=== PATIENT | female | born 2000 | race Caucasian/White ===

== ENCOUNTER 2024-02-16 14:07 | Emergency (ER) | payer BC, SELFPAY ==
[2024-02-16 14:14] VITALS: BP 149/75
[2024-02-16 14:39] LABS: % Basophils 0.4 % (0-2); % Eosinophils 0.3 % (0-6); % Immature Granulocytes 0.3 % (0-0.5); % Lymphocytes 13.2 % (20.5-51.1); % Monocytes 5.1 % (1.7-9.3); % Neutrophils 80.7 % (42.2-75.2); Absolute Monocytes 0.4 10^3/uL (0.1-0.6); Absolute Neutrophils 6.2 10^3/uL (1.4-6.5); Hematocrit 42.9 % (37.0-47.0); Hemoglobin 14.8 g/dL (12.0-16.0); Mean Corp Hgb Conc. 34.5 g/dL (33.0-37.0); Mean Corpuscular Hgb 29.6 pg (27.0-31.0); Mean Corpuscular Volume 85.8 fL (81.0-99.0); Mean Platelet Volume 10.3 fL (7.4-10.4); Nucleated Red Blood Cells % 0 %; Platelet Count 236 10^3/uL (130-400); Red Cell Dist. Width 12.3 % (11.5-14.5); White Blood Cell Count 7.7 10^3/uL (4.8-10.8)
[2024-02-16 14:49] LABS: HCG, Serum Qualitative Screen Negative
[2024-02-16 14:53] LABS: ALT (SGPT) 20 U/L (0-35); AST (SGOT) 23 U/L (14-36); Albumin 5.1 g/dl (3.5-5.0); Alkaline Phosphatase 110 U/L (38-126); Blood Urea Nitrogen 8 mg/dl (7-17); Calcium 10.1 mg/dl (8.4-10.2); Carbon Dioxide 21 mmol/L (22-30); Chloride 103 mmol/L (98-107); Glucose 129 mg/dl (70-99); Potassium 3.7 mmol/L (3.5-5.1); Sodium 137 mmol/L (135-145); Total Bilirubin 0.6 mg/dl (0.2-1.3); eGFR > 60.00
--- NOTE | 2024-02-16 15:06 | ED.GENMED ---
History of Present Illness
General
Chief Complaint: Abdominal Symptoms
Source: patient
Exam Limitations: none
Time Seen by Provider: 02/16/24 14:50
History of Present Illness
History of Present Illness:
23-year-old female with 3 days of nausea vomiting vague upper abdominal discomfort. Today she states she vomited a small amount of bright red blood. No chest pain shortness of breath back pain fever. Patient increased her [place] weeks ago. No
one else is ill at home. No other unusual food ingestion.
Past History
Past History
ED Past Medical History: Psychiatric and Other (PCOS)
ED Past Surgical History: Tonsilectomy and Other (Bone graft and implant for teeth)
Review of Systems
Review of Systems
All Other Systems: Not applicable
Respiratory: Reports no symptoms
: Reports no symptoms
Phy Exam
Physical Exam
Physical Exam:
GENERAL: Alert and oriented in no apparent distress
EYE: Orbits normal.
NECK: Supple, no significant adenopathy.
ENT: Pharynx without erythema
CARDIAC: Regular rate and rhythm without any obvious murmurs.
LUNGS: Clear breath sounds,normal
ABDOMEN: Soft, minimal epigastric tenderness. No rebound or guarding no mass or hernia
NEUROLOGICAL: Alert and oriented , grossly non-focal
SKIN: Warm and dry, no rash or lesion, no discoloration, skin intact.
MUSCULOSKELETAL: No edema,no deformity.Good color
PSYCH: Normal and appropriate interaction.
Course
Orders/Labs/Results
Orders:
Orders
02/16/24 14:21
Test Result ONCE
02/16/24 14:24
CMP [Comprehensive Metabolic Panel] Urgent
Complete Blood Count/With Diff Urgent
HCG, Serum Qualitative Screen Urgent
Lipase Urgent
Comment: ADD ON
02/16/24 14:51
Add On- LAB Urgent
Tests Added?: lipase
02/16/24 15:05
CT Abd/Pel (IV only)-[facility] only Urgent
Comment:
Reason For Exam: Abdominal pain/vomiting
IV Insert/Care/Rem.- Treatment PRN
0.9% Sodium Chloride 1000 ml [Nss] 1,000 ml IV BOLUS
Ondansetron Injectable [Zofran] 4 mg IV NOW STA
Pantoprazole [Protonix IV] 40 mg IV NOW STA
02/16/24 17:02
EKG [Electrocardiogram (*1)] Urgent
Reason for Study: QTc Monitoring
EKG- Treatment ONCE
02/16/24 17:45
0.9% Sodium Chloride 500 ml [Nss] 500 ml IV BOLUS
Diphenhydramine [Benadryl] 25 mg IV NOW STA
Prochlorperazine [Compazine] 5 mg IV NOW STA
Abnormal Lab Results
02/16/24
14:24
Absolute Lymphs (auto) 1.0 L 10^3/uL
(1.2-3.4)
Neutrophils % 80.7 H %
(42.2-75.2)
Lymphocytes % 13.2 L %
(20.5-51.1)
Carbon Dioxide 21 L mmol/L
(22-30)
Glucose 129 H mg/dl
(70-99)
Albumin 5.1 H g/dl
(3.5-5.0)
02/16/24 14:24
02/16/24 14:24
Vital Signs
Initial and Last Documented VS:
Initial Vital Signs
Temp Pulse Resp BP Pulse Ox
97.8 F 72 16 149/75 99
02/16/24 14:14 02/16/24 14:14 02/16/24 14:14 02/16/24 14:14 02/16/24 14:14
Last Documented Vital Signs
Temp Pulse Resp BP Pulse Ox
97.8 F 72 16 149/75 99
02/16/24 14:14 02/16/24 14:14 02/16/24 14:14 02/16/24 14:14 02/16/24 14:14
MDM/Problems Addressed
Differential Diagnosis Includes:
Patient symptoms likely either viral or related to her Wegovy. However with the abdominal discomfort and Wegovy we will get a CT to evaluate her pancreas. Lipase is pending. As for this hematemesis, I looked at her emesis and there was no obvious
clots of blood. She is in 0 distress. Highly doubt significant Chanelle-Maldonado tear. Comfort measures of saline Protonix and Zofran
*Radiology
Radiology exam reviewed: radiology read reviewed (Mild colitis. Possible Daksha's morphology)
*Pulse Oximetry
Patient hypoxic: no
*EKG
Interpreted by ED Provider?: Yes
Interpretation: normal
Heart Rate: 64
Rate: normal
Rhythm: sinus
Vancleve: normal axis
Interval: normal interval
QRS Pattern: normal QRS
Ischemia: no ischemia
*Critical Care Note
Total Time (30-74mins, 75-104mins- exclusive of procedures): Not Applicable
Update Note
Update Note:
1700... Patient still feels nauseous. Workup unremarkable. Mildly enlarged liver but LFTs normal no right upper quadrant tenderness. Will get an EKG to check QT interval if okay give Compazine and Benadryl.
1935... Patient looks great and feels much better. Stable for discharge. Enteritis versus Wegovy
ED Attending Note
-
Portions of this chart may have been created with voice recognition software.� Occasional wrong word or��sound alike� substitutions may have occurred due to the inherent limitations of voice recognition software.
Discharge Plan
Departure
Patient Disposition: Home (Routine Discharge)
Date of Disposition: 02/16/24
Time of Disposition: 19:45
Patient with high blood pressure during this ER visit?: Yes
Discharge Problem:
Enteritis/colitis, Viral versus medication related, Probable Daksha's hepatomegaly
Instructions: Nausea and Vomiting, Adult (DC), Abdominal Pain, BLOOD PRESSURE
Referrals:
UNKNOWN - PT DOES,NOT KNOW [Family Provider] -
Activity Restrictions/Additional Instructions:
Follow-up closely with your primary physician.
Also discussed continuation of your medication
Get rechecked if symptoms progress or if not improving or resolved in 2 to 3 days
To consider follow-up ultrasounds of your liver. This can be followed with your primary care physician
Discharge Date and Time
Print Language: MICRONESIAN
[2024-02-16] MEDS: NSS 1000 IV (15:25)
[2024-02-16] MEDS: PROTONIX IV 40 MG IV (15:26)
[2024-02-16] MEDS: ZOFRAN 4 MG IV (15:26)
[2024-02-16 15:29] LABS: Lipase 47 U/L (23-300)
[2024-02-16] MEDS: BENADRYL 25 MG IV (18:19)
[2024-02-16] MEDS: NSS 500 IV (18:19)
[2024-02-16] MEDS: COMPAZINE 5 MG IV (18:20)
[2024-02-16 19:53] VITALS: BP 120/68
== END 2024-02-16 19:59 | disposition home or self-care (01) ==
LOC: EMR 14:07
PROVIDERS: Emergency Medicine; EMERGENCY PHYSICIAN Emergency Medicine
DX: A08.4 Viral intestinal infection, unspecified (principal); E28.2 Polycystic ovarian syndrome
CPT/HCPCS: 99284; 96374; 96375; 96361; 74177; 80053; 83690; 84703; 85025; 93005; Q9967

== ENCOUNTER 2024-02-19 12:39 | Emergency (ER) | payer BC, SELFPAY ==
[2024-02-19 12:53] VITALS: BP 156/87
--- NOTE | 2024-02-19 12:59 | ED.GENMED ---
ED Provider Triage
<SARAH Corona - Last Filed: 02/19/24 13:03>
-
Patient seen by provider in Triage?: Seen in Triage
Attestation: A medical screening examination has been initiated by a qualified medical provider. Based on the assessment performed at this time, it has been determined that an emergent medical condition may exist and the patient has been informed
that further medical evaluation and possible additional diagnostic testing may be needed.
HPI: 23 yr old female presents to the ED with c/o of n/v 6 d ago. pt was seen here on Friday received fluids. Pt still vomiting and feels dehydrated. Does not have any prescribed nausea medicine at home. No fevers. Patient went to urgent
care today and blood work was obtained. She was sent to the ER for low potassium of 3.1.
GENERAL: Alert , in no apparent distress
EYE: No visual abnormalities.
NECK: Trachea midline
ENT: No visible abnormalities.
LUNGS: No acute respiratory distress
NEUROLOGICAL: Alert and oriented
SKIN: Skin intact. No visible changes.
MUSCULOSKELETAL: Moving extremities normally
PSYCH: Normal and appropriate interaction.
This is a medical evaluation conducted in person to initiate diagnostic evaluation and provide initial therapeutics. Please see further documentation by the treating clinician.
History of Present Illness
<SARAH Corona - Last Filed: 02/19/24 13:03>
General
Chief Complaint: Dehydration Symptoms
Time Seen by Provider: 02/19/24 13:24
<Kathi Smith PA-C - Last Filed: 02/19/24 17:54>
General
Source: patient and records
Exam Limitations: none
History of Present Illness
History of Present Illness:
23yoF with a history of PCOS, bipolar disorder, and anxiety presenting for evaluation of nausea and vomiting. Symptoms have been ongoing for the past several days. She was seen in the ED 3 days ago for the same. CT showed questionable mild
colitis. She was feeling well after medications and was ultimately discharged. Her symptoms have recurred and she is having difficulty tolerating p.o. intake. She is vomiting 10+ times a day. She also reports seeing a small amount of bright red
blood mixed in with her emesis. She denies any diarrhea. She reports a generalized aching/soreness in her abdomen which she attributes to the vomiting. She was seen at her PCP yesterday and was diagnosed with COVID. She went to urgent care today
and potassium was 3.1 and she was sent to the ED for evaluation. Of note, patient's Wegovy dose was increased last week. She also admits to daily marijuana use but has not used since her symptoms began.
Past History
<SARAH Corona - Last Filed: 02/19/24 13:03>
Past History
ED Past Medical History: Psychiatric and Other (PCOS)
ED Past Surgical History: Tonsilectomy and Other (Bone graft and implant for teeth)
Phy Exam
<Kathi Smith PA-C - Last Filed: 02/19/24 17:54>
General Physical Exam
General Presentation: well appearing and no apparent distress
General age: appears stated age
General Skin: warm and dry
General Habitus: normal
General Mental: alert
ENT Exam
ENT Exam: normocephalic
Cardiovascular Exam
Cardiovascular Exam: regular rate/rhythm
Pulmonary Exam
Pulmonary Exam: lungs clear, no respiratory distress, no rales, no crackles, no rhonchi and no wheezing
Gastrointestinal Exam
Gastrointestinal Exam: non tender, soft and non distended
Neurological Exam
Neurological Exam: alert
Mimbres Coma Scale
Eye Opening: Spontaneous
Verbal Response: Oriented
Motor Response: Obeys Commands
GCS Total Score: 15
Skin Exam
Skin Exam: normal color and warm/dry
Psychiatric Exam
Psychiatric Exam: normal mood/affect
<Apolinar Weathers PA-C - Last Filed: 02/19/24 23:21>
Mimbres Coma Scale
GCS Total Score: 15
Course
<SARAH Corona - Last Filed: 02/19/24 13:03>
Orders/Labs/Results
Orders:
Orders
02/19/24 13:02
Ondansetron Orally Disint [Zofran Odt (Orally Disintegrating)] 4 mg PO NOW STA
02/19/24 13:05
Ondansetron Orally Disint [Zofran Odt (Orally Disintegrating)] 4 mg .ROUTE .[facility]
02/19/24 13:40
0.9% Sodium Chloride 1000 ml [Nss] 1,000 ml IV BOLUS
Diphenhydramine [Benadryl] 25 mg IV NOW STA
Famotidine [Pepcid] 20 mg IV NOW STA
Metoclopramide [Reglan] 10 mg IV NOW STA
Pantoprazole [Protonix IV] 40 mg IV NOW STA
Test Result ONCE
02/19/24 13:59
Complete Blood Count/With Diff Urgent
Comprehensive Metabolic Panel Urgent
HCG, Serum Qualitative Screen Urgent
Lipase Urgent
02/19/24 15:28
0.9% Sodium Chloride 1000 ml [Nss] 1,000 ml IV BOLUS
Promethazine [Phenergan] 25 mg IM NOW STA
02/19/24 16:32
Prochlorperazine [Compazine] 10 mg IV NOW STA
Abnormal Lab Results
02/19/24
13:59
WBC 12.4 H 10^3/uL
(4.8-10.8)
Absolute Neuts (auto) 10.5 H 10^3/uL
(1.4-6.5)
Neutrophils % 85.2 H %
(42.2-75.2)
Lymphocytes % 10.9 L %
(20.5-51.1)
Glucose 107 H mg/dl
(70-99)
Albumin 5.2 H g/dl
(3.5-5.0)
02/19/24 13:59
02/19/24 13:59
Vital Signs
Initial and Last Documented VS:
Initial Vital Signs
Temp Pulse Resp BP Pulse Ox
98.4 F 57 18 156/87 96
02/19/24 12:53 02/19/24 12:53 02/19/24 12:53 02/19/24 12:53 02/19/24 12:53
Last Documented Vital Signs
Temp Pulse Resp BP Pulse Ox
98.4 F 62 18 136/67 99
02/19/24 12:53 02/19/24 14:09 02/19/24 14:09 02/19/24 14:09 02/19/24 14:09
<Kathi Smith PA-C - Last Filed: 02/19/24 17:54>
Orders/Labs/Results
Orders:
Orders
02/19/24 13:02
Ondansetron Orally Disint [Zofran Odt (Orally Disintegrating)] 4 mg PO NOW STA
02/19/24 13:05
Ondansetron Orally Disint [Zofran Odt (Orally Disintegrating)] 4 mg .ROUTE .[facility]
02/19/24 13:40
0.9% Sodium Chloride 1000 ml [Nss] 1,000 ml IV BOLUS
Diphenhydramine [Benadryl] 25 mg IV NOW STA
Famotidine [Pepcid] 20 mg IV NOW STA
Metoclopramide [Reglan] 10 mg IV NOW STA
Pantoprazole [Protonix IV] 40 mg IV NOW STA
Test Result ONCE
02/19/24 13:59
Complete Blood Count/With Diff Urgent
Comprehensive Metabolic Panel Urgent
HCG, Serum Qualitative Screen Urgent
Lipase Urgent
02/19/24 15:28
0.9% Sodium Chloride 1000 ml [Nss] 1,000 ml IV BOLUS
Promethazine [Phenergan] 25 mg IM NOW STA
02/19/24 16:32
Prochlorperazine [Compazine] 10 mg IV NOW STA
Abnormal Lab Results
02/19/24
13:59
WBC 12.4 H 10^3/uL
(4.8-10.8)
Absolute Neuts (auto) 10.5 H 10^3/uL
(1.4-6.5)
Neutrophils % 85.2 H %
(42.2-75.2)
Lymphocytes % 10.9 L %
(20.5-51.1)
Glucose 107 H mg/dl
(70-99)
Albumin 5.2 H g/dl
(3.5-5.0)
02/19/24 13:59
02/19/24 13:59
Vital Signs
Initial and Last Documented VS:
Initial Vital Signs
Temp Pulse Resp BP Pulse Ox
98.4 F 57 18 156/87 96
02/19/24 12:53 02/19/24 12:53 02/19/24 12:53 02/19/24 12:53 02/19/24 12:53
Last Documented Vital Signs
Temp Pulse Resp BP Pulse Ox
98.4 F 62 18 136/67 99
02/19/24 12:53 02/19/24 14:09 02/19/24 14:09 02/19/24 14:09 02/19/24 14:09
<Apolinar Weathers PA-C - Last Filed: 02/19/24 23:21>
Orders/Labs/Results
Orders:
Orders
02/19/24 13:02
Ondansetron Orally Disint [Zofran Odt (Orally Disintegrating)] 4 mg PO NOW STA
02/19/24 13:05
Ondansetron Orally Disint [Zofran Odt (Orally Disintegrating)] 4 mg .ROUTE .[facility]
02/19/24 13:40
0.9% Sodium Chloride 1000 ml [Nss] 1,000 ml IV BOLUS
Diphenhydramine [Benadryl] 25 mg IV NOW STA
Famotidine [Pepcid] 20 mg IV NOW STA
Metoclopramide [Reglan] 10 mg IV NOW STA
Pantoprazole [Protonix IV] 40 mg IV NOW STA
Test Result ONCE
02/19/24 13:59
Complete Blood Count/With Diff Urgent
Comprehensive Metabolic Panel Urgent
HCG, Serum Qualitative Screen Urgent
Lipase Urgent
02/19/24 15:28
0.9% Sodium Chloride 1000 ml [Nss] 1,000 ml IV BOLUS
Promethazine [Phenergan] 25 mg IM NOW STA
02/19/24 16:32
Prochlorperazine [Compazine] 10 mg IV NOW STA
Abnormal Lab Results
02/19/24
13:59
WBC 12.4 H 10^3/uL
(4.8-10.8)
Absolute Neuts (auto) 10.5 H 10^3/uL
(1.4-6.5)
Neutrophils % 85.2 H %
(42.2-75.2)
Lymphocytes % 10.9 L %
(20.5-51.1)
Glucose 107 H mg/dl
(70-99)
Albumin 5.2 H g/dl
(3.5-5.0)
02/19/24 13:59
02/19/24 13:59
Vital Signs
Initial and Last Documented VS:
Initial Vital Signs
Temp Pulse Resp BP Pulse Ox
98.4 F 57 18 156/87 96
02/19/24 12:53 02/19/24 12:53 02/19/24 12:53 02/19/24 12:53 02/19/24 12:53
Last Documented Vital Signs
Temp Pulse Resp BP Pulse Ox
98.4 F 62 18 136/67 99
02/19/24 12:53 02/19/24 14:09 02/19/24 14:09 02/19/24 14:09 02/19/24 14:09
<Kathi Smith PA-C - Last Filed: 02/19/24 17:54>
MDM/Problems Addressed
Differential Diagnosis Includes:
23yoF here with nausea and vomiting. Seen in the ED 3 days ago for the same. Reports some blood mixed in with the emesis. Wegovy dose increased last week and smokes marijuana daily. Was also reportedly diagnosed with COVID yesterday by her PCP. Sent
here by urgent care. She is afebrile and hemodynamically stable. She is well appearing in no distress. Abdominal exam is benign. Differential diagnosis includes but is not limited to: side effect of Wegovy, cannabinoid hyperemesis, viral illness,
dehydration, gastritis, Chanelle Maldonado tear
Initial ED plan: Check abdominal labs and HCG. IV Reglan, Benadryl, Pepcid, Protonix, and fluid bolus ordered.
Final disposition: Labs reveal a mild leukocytosis with a WBC of 12.4, likely reactive 2/2 vomiting. Electrolytes and renal function normal. Patient reports continued nausea on reassessment although has not had any vomiting and is able to tolerate
sips of fluids. IM Phenergan ordered. Mother brought her a bagel to try to eat. Patient signed out to Brando Weathers PA-C prior to reassessment. Suspect symptoms are secondary to her recent increase in Wegovy dosing. Her PCP did prescribe her ODT Zofran
and Phenergan suppositories yesterday but her PCP had to complete a prior authorization. Medications are now ready to be picked up.
<Kathi Smith PA-C - Last Filed: 02/19/24 17:54>
*Critical Care Note
Total Time (30-74mins, 75-104mins- exclusive of procedures): Not Applicable
<Apolinar Weathers PA-C - Last Filed: 02/19/24 23:21>
Update Note
Update Note:
Patient is tolerating small sips of clear liquid. Labs are stable. Likely vomiting secondary to marijuana use coupled with GLP-1 agonist use. Stable for discharge
ED Attending Note
<SARAH Corona - Last Filed: 02/19/24 13:03>
-
Portions of this chart may have been created with voice recognition software.� Occasional wrong word or��sound alike� substitutions may have occurred due to the inherent limitations of voice recognition software.
Discharge Plan
Departure
Patient Disposition: Home (Routine Discharge)
Date of Disposition: 02/19/24
Time of Disposition: 16:39
Patient with high blood pressure during this ER visit?: No
Discharge Problem:
Nausea and vomiting
Instructions: Nausea and Vomiting, Adult (DC)
Prescriptions:
New
pantoprazole 40 mg tablet,delayed release (DR/EC)
40 mg PO DAILY Qty: 14 0RF
Referrals:
Dena Tinajero [Family Provider] -
Interventions
Interventions:
*Risk Screen - Suicide Last Done: 02/19/24 12:53
*General Assessment Last Done: 02/19/24 12:53
*Neglect/Abuse Screening Last Done: 02/19/24 12:53
*Nursing Disposition Last Done: 02/19/24 17:11
ED- Cardiac Assessment Last Done: 02/19/24 14:09
ED- Neurological Assessment Last Done: 02/19/24 14:09
ED- Pulmonary Assessment Last Done: 02/19/24 14:09
Discharge Date and Time
Discharge Date/Time: 02/19/24 17:11
Print Language: SWEDISH
[2024-02-19] MEDS: ZOFRAN ODT (ORALLY DISINTEGRATING) 4 MG PO (13:05)
[2024-02-19 14:09] VITALS: BP 136/67
[2024-02-19] MEDS: NSS 1000 IV ×2 (14:11→16:30)
[2024-02-19] MEDS: BENADRYL 25 MG IV (14:12)
[2024-02-19] MEDS: PROTONIX IV 40 MG IV (14:12)
[2024-02-19] MEDS: PEPCID 20 MG IV (14:12)
[2024-02-19] MEDS: REGLAN 10 MG IV (14:13)
[2024-02-19 14:23] LABS: % Basophils 0.2 % (0-2); % Immature Granulocytes 0.3 % (0-0.5); % Lymphocytes 10.9 % (20.5-51.1); % Monocytes 3.4 % (1.7-9.3); % Neutrophils 85.2 % (42.2-75.2); Absolute Lymphocytes 1.4 10^3/uL (1.2-3.4); Absolute Monocytes 0.4 10^3/uL (0.1-0.6); Absolute Neutrophils 10.5 10^3/uL (1.4-6.5); Hematocrit 43.4 % (37.0-47.0); Hemoglobin 14.5 g/dL (12.0-16.0); Mean Corp Hgb Conc. 33.4 g/dL (33.0-37.0); Mean Corpuscular Hgb 29.5 pg (27.0-31.0); Mean Corpuscular Volume 88.4 fL (81.0-99.0); Mean Platelet Volume 10.3 fL (7.4-10.4); Nucleated Red Blood Cells % 0 %; Platelet Count 262 10^3/uL (130-400); Red Blood Cell Count 4.91 10^6/uL (4.20-5.40); Red Cell Dist. Width 12.5 % (11.5-14.5); White Blood Cell Count 12.4 10^3/uL (4.8-10.8)
[2024-02-19 14:31] LABS: ALT (SGPT) 30 U/L (0-35); AST (SGOT) 35 U/L (14-36); Albumin 5.2 g/dl (3.5-5.0); Alkaline Phosphatase 89 U/L (38-126); Blood Urea Nitrogen 11 mg/dl (7-17); Calcium 9.7 mg/dl (8.4-10.2); Carbon Dioxide 26 mmol/L (22-30); Chloride 98 mmol/L (98-107); Glucose 107 mg/dl (70-99); Lipase 66 U/L (23-300); Potassium 3.7 mmol/L (3.5-5.1); Sodium 139 mmol/L (135-145); Total Bilirubin 0.7 mg/dl (0.2-1.3); eGFR > 60.00
[2024-02-19 14:32] LABS: HCG, Serum Qualitative Screen Negative
[2024-02-19] MEDS: COMPAZINE 10 MG IV (16:51)
== END 2024-02-19 17:11 | disposition home or self-care (01) ==
LOC: EMR 12:39
PROVIDERS: Physician Assistant; EMERGENCY PHYSICIAN Emergency Medicine; FAMILY PHYSICIAN Nurse Practitioner Adult Health
DX: U07.1 COVID-19 (principal); R11.2 Nausea with vomiting, unspecified; E28.2 Polycystic ovarian syndrome; F12.90 Cannabis use, unspecified, uncomplicated; Z79.899 Other long term (current) drug therapy
CPT/HCPCS: 99284; 96361; 96374; 96375; 80053; 83690; 84703; 85025